=== PATIENT | female | born 1995 | race American Indian/Alaskan Native ===

== ENCOUNTER 2018-02-02 23:50 | Emergency (ER) | payer SELFPAY ==
[2018-02-02 23:56] VITALS: BP 124/74
== END 2018-02-03 00:16 | disposition left against medical advice (07) ==
LOC: ED 23:50
DX: M79.1 Myalgia (principal); Z53.21 Procedure and treatment not carried out due to patient leaving prior to being seen by health care provider

== ENCOUNTER 2018-02-03 18:53 | Emergency (ER) | payer SELFPAY ==
[2018-02-03 19:52] VITALS: BP 103/69
[2018-02-03] MEDS ORDERED: MOTRIN PO ONE (19:55)
--- NOTE | 2018-02-03 20:57 | XRay Report ---
FINAL REPORT PROCEDURE: Right rib series and PA chest x-ray TECHNIQUE: PA view of the chest was obtained as well as an oblique view of the right ribs. HISTORY: Right rib pain COMPARISON: No prior studies are available for comparison. FINDINGS: The images provided show no evidence of displaced rib fracture. Heart size and pulmonary vasculature appear normal. Lungs are clear. No infiltrates masses effusions or pneumothorax visualized. Mild lower thoracic scoliosis visualize convex the left apex T8-T9 level. IMPRESSION: Mild scoliosis. No acute abnormalities are identified.
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
== END 2018-02-03 23:39 | disposition left against medical advice (07) ==
LOC: ED 18:53
DX: M79.1 Myalgia (principal); Z53.21 Procedure and treatment not carried out due to patient leaving prior to being seen by health care provider
CPT/HCPCS: 72040; 72100

== ENCOUNTER 2020-12-08 21:00 | Emergency (ER) | payer SELFPAY ==
[2020-12-08] MEDS ORDERED: TETANUS,DIPH,PERTUSS(ACELL) VACCINE 0.5 ML SYRINGE IM ONE (21:11)
[2020-12-08] MEDS ORDERED: MORPHINE 4 MG/1 ML INJ IV ONE (21:11)
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
[2020-12-08 21:20] LABS: Basophils % (Auto) 0.4 % (0.0-1.8); Eosinophils # (Auto) 0.1 K/mm3 (0.0-0.4); Eosinophils % (Auto) 0.6 % (0.0-4.3); Hemoglobin 13.8 gm/dl (10.1-14.3); Lymphocytes # (Auto) 2.3 K/mm3 (1.2-5.4); Lymphocytes % (Auto) 25.4 % (13.4-35.0); Mean Corpuscular HGB Conc 35 % (30-34); Mean Corpuscular Volume 87 fl (79-97); Monocytes # (Auto) 0.9 K/mm3 (0.0-0.8); Monocytes % (Auto) 9.4 % (0.0-7.3); Platelet Count 325 K/mm3 (140-440); Red Blood Count 4.62 M/mm3 (3.65-5.03); Red Cell Distribution Width 13.4 % (13.2-15.2)
[2020-12-08] MEDS ORDERED: HYDROmorphone 1 MG/1 ML INJ IV ONE (21:34)
[2020-12-08] MEDS ORDERED: SODIUM CHLORIDE 0.9% 1000 ML 1,000 ML IV ONE (21:37)
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
[2020-12-08 22:05] LABS: Alanine Aminotransferase 21 units/L (7-56); Albumin 4.5 g/dL (3.9-5); BUN/Creatinine Ratio 10; Blood Urea Nitrogen 8 mg/dL (7-17); Calcium 9.2 mg/dL (8.4-10.2); Hemolysis Index 17
[2020-12-08 22:54] VITALS: BP 127/83
== END 2020-12-09 01:10 | disposition home or self-care (01) ==
LOC: ED 21:00
DX: S01.111A Laceration without foreign body of right eyelid and periocular area, initial encounter (principal); T14.8XXA Other injury of unspecified body region, initial encounter; M79.641 Pain in right hand; M25.531 Pain in right wrist; Z79.899 Other long term (current) drug therapy; W25.XXXA Contact with sharp glass, initial encounter; Y93.89 Activity, other specified; Y92.89 Other specified places as the place of occurrence of the external cause; Y99.8 Other external cause status
CPT/HCPCS: 29125; 36415; 70486; 73110; 73130; 80053; 84703; 85025; 90471; 90715; 96361; 96365; 96375; 99285; J0690; J1170; J2270; J7030

== ENCOUNTER 2022-03-20 12:08 | Emergency (ER) | payer SELFPAY ==
[2022-03-20 12:23] VITALS: BP 123/84
[2022-03-20 13:02] LABS: Basophils % (Auto) 0.3 % (0.0-1.8); Eosinophils % (Auto) 0.4 % (0.0-4.3); Hematocrit 37.2 % (30.3-42.9); Hemoglobin 12.4 gm/dl (10.1-14.3); Lymphocytes # (Auto) 1.5 K/mm3 (1.2-5.4); Lymphocytes % (Auto) 21.1 % (13.4-35.0); Mean Corpuscular HGB Conc 33 % (30-34); Mean Corpuscular Volume 88 fl (79-97); Monocytes # (Auto) 0.6 K/mm3 (0.0-0.8); Monocytes % (Auto) 8.3 % (0.0-7.3); Platelet Count 269 K/mm3 (140-440); Red Blood Count 4.24 M/mm3 (3.65-5.03); Red Cell Distribution Width 13.5 % (13.2-15.2)
[2022-03-20 13:27] LABS: Alanine Aminotransferase 20 units/L (7-56); Albumin 4.5 g/dL (3.9-5); BUN/Creatinine Ratio 15; Blood Urea Nitrogen 12 mg/dL (7-17); Calcium 8.8 mg/dL (8.4-10.2); Hemolysis Index 4
[2022-03-20] MEDS ORDERED: ACETAMINOPHEN 325 MG TAB PO ONE (16:40)
[2022-03-20] MEDS ORDERED: SODIUM CHLORIDE 0.9% 1000 ML 1,000 ML IV ONE (16:41)
--- NOTE | 2022-03-20 17:24 | Cat Scan Report ---
CT BRAIN: 03/20/2022 INDICATION / CLINICAL INFORMATION: syncope. COMPARISON: None available. FINDINGS: BRAIN/INTRACRANIAL STRUCTURES: Unenhanced CT images of the brain demonstrate no evidence of acute abn ormality. Ventricles and sulci are normal in size and shape. There is no evidence of hemorrhage or mass. There are no abnormal extra-axial fluid collections. EXTRACRANIAL STRUCTURES: Unremarkable. IMPRESSION: No acute abnormality. Negative unenhanced CT of the brain. All CT scans at this location are performed using dose reduction to ALARA by means of automated expos ure control. Signer Name: Zach Tovar MD Signed: 03/20/2022 5:19 PM Workstation Name: [id number]
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
--- NOTE | 2022-03-22 10:19 | Electrocardiograph Report ---
[facility] Test Date: 2022-03-20 Test Time: 12:38:13 Pat Name: HOLLY MENDES Department: Room: Gender: F Patient Experience Coordinator: ZURI : 1995 Requested By: ED DOC Order Number: [id number] Reading MD: Marlo Orlando Measurements Intervals [place] Rate: 60 P: 43 MA: 170 QRS: 16 QRSD: 76 T: 34 QT: 428 QTc: 427 Interpretive Statements Sinus rhythm No previous ECG available for comparison Electronically Signed On 03-22-2022 10:19:09 EDT by Marlo Orlando
== END 2022-03-20 18:16 | disposition home or self-care (01) ==
LOC: ED 12:08
DX: R55 Syncope and collapse (principal); R51.9 Headache, unspecified
CPT/HCPCS: 36415; 70450; 80053; 84484; 85025; 93005; 96360; 99284; J7030